=== PATIENT | female | born 1960 ===

== ENCOUNTER 2019-07-09 05:20 | Day surgery (SDC) | payer OTHER ==
[~2019-07-09 05:20] MED LIST: GABAPENTIN300 M2 PO; INTRINSI B12-F1 EACH PO; LOSARTAN-HCTZ1 EAC2 PO; PEPCID AC20 MG PO; VITAMIN D350000 UNIT PO
[2019-07-09] MEDS ORDERED: ULTRACET PO (11:31)
[2019-07-09] MEDS ORDERED: MACROBID 100 M100 MG PO (11:31)
== END 2019-07-09 17:00 | disposition home or self-care (01) ==
LOC: CIR.AMB 05:20 → ADM 10:45 → CIR.AMB 17:00
DX: N81.3 Complete uterovaginal prolapse (principal)